=== PATIENT | female | born 1945 | race Caucasian/White ===

== ENCOUNTER → 2017-01-16 | Outpatient (CLI) | payer MEDICARE, OTHER ==
[2017-01-16 12:29] LABS: HEMOGLOBIN 15.5 gm/dl (12.3-15.3); RED BLOOD COUNT 5.65 M/UL (4.00-5.10); WHITE BLOOD COUNT 8.8 K/UL (4.5-11.0)
== END ==
LOC: LAB 11:44
PROVIDERS: Physician Assistant
DX: K92.1 Melena (principal); R19.7 Diarrhea, unspecified; R10.9 Unspecified abdominal pain
CPT/HCPCS: 36415; 85025

== ENCOUNTER 2020-08-28 11:35 | Emergency (ER) | payer MEDICARE, OTHER ==
[~2020-08-28] VITALS: Ht 157.5 cm; Wt 81.2 kg
[~2020-08-28 11:35] MED LIST: KLOR-CON M1010 MEQ PO; LEVOCETIRIZINE D5 MG PO; LEVOTHYROXINE50 MCG PO; MICROZIDE12.5 MG PO; NORVASC 5 MG TAB5 MG PO; PRAVACHOL20 MG PO; VITAMIN D1000 UNIT PO
== END 2020-08-28 16:55 | disposition home or self-care (01) ==
LOC: ER1 11:35
DX: U07.1 COVID-19 (principal)
CPT/HCPCS: 99283; M0239

== ENCOUNTER → 2021-11-13 | Outpatient (CLI) | payer MEDICARE ==
[~2021-11-13] MED LIST changes: +AMLODIPINE BESYL5 MG PO; +HYDROCHLOROTH12.5 M1 PO; +PEPCID40 MG PO; +PRAVASTATIN SOD20 MG PO; +PROTONIX 40 MG40 M1 PO
== END ==
LOC: MAMO 08:00
DX: Z12.31 Encounter for screening mammogram for malignant neoplasm of breast (principal)
CPT/HCPCS: 77063; 77067

== ENCOUNTER → 2021-12-25 | Outpatient (CLI) | payer MEDICARE, OTHER ==
[~2021-12-25] MED LIST changes: +REGLAN5 MG PO
[2021-12-25 09:57] LABS: HEMOGLOBIN 14.9 gm/dl (12.3-15.3); RED BLOOD COUNT 5.24 M/UL (4.00-5.10); WHITE BLOOD COUNT 6.3 K/UL (4.5-11.0)
== END ==
LOC: OPSV2 09:00
PROVIDERS: Obstetrics & Gynecology
DX: Z01.818 Encounter for other preprocedural examination (principal); N95.0 Postmenopausal bleeding
CPT/HCPCS: 36415; 71046; 81001; 85025; 93005

== ENCOUNTER → 2021-12-27 | Outpatient (CLI) | payer MEDICARE | LOC: KOH-I 13:06 | DX: R60.0 Localized edema (principal) | CPT/HCPCS: 93971 ==

== ENCOUNTER → 2022-01-08 | Day surgery (SDC) | payer MEDICARE, OTHER ==
[~2022-01-08] MED LIST changes: +COLACE 100MG C100 MG PO; +HYDROCODON-ACE1 EAC4 PO; +NAPROXEN250 MG PO
== END | disposition home or self-care (01) ==
LOC: OR 07:18
DX: N84.0 Polyp of corpus uteri (principal); N95.0 Postmenopausal bleeding; R60.0 Localized edema; E78.00 Pure hypercholesterolemia, unspecified; I10 Essential (primary) hypertension; K21.9 Gastro-esophageal reflux disease without esophagitis; Z88.0 Allergy status to penicillin; Z88.8 Allergy status to other drugs, medicaments and biological substances; Z79.899 Other long term (current) drug therapy
CPT/HCPCS: J1100; J2001; J2405; J2704; J2795; J3010; J7120